=== PATIENT | male | born 1955 | race Caucasian/White ===

== ENCOUNTER → 2019-06-30 | Outpatient (CLI) | payer OTHER ==
[~2019-06-30] MED LIST: ALBUTEROL SULFATE 2.5 MG/3 ML NEBU. NEB ONE
== END | disposition home or self-care (01) ==
LOC: PF 09:39
PROVIDERS: ATTEND Family Medicine
DX: G47.33 Obstructive sleep apnea (adult) (pediatric) (principal)
CPT/HCPCS: 94060; 94640; J7613